=== PATIENT | male | born 1985 | race Caucasian/White ===

== ENCOUNTER 2020-04-26 12:26 | Emergency (ER) | payer SELFPAY ==
[~2020-04-26] VITALS: Ht 172.7 cm; Wt 59.0 kg
[2020-04-26] MEDS ORDERED: IBUPROFEN IB200 MG PO (12:58)
[2020-04-26] MEDS ORDERED: ACETAMINOPHEN500 MG PO (12:58)
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
--- NOTE | 2020-04-26 13:12 | Diagnostic Imaging Report ---
CT BRAIN [facility] HISTORY: Trauma COMPARISON: None. TECHNIQUE: Noncontrast axial scans were obtained from skull base to the vertex. Coronal and sagittal reconstructions obtained from the axial data. One or more of the following dose reduction techniques were used: Automated exposure control, adjustment of the mA and/or kV according to patient size, and/or utilization of iterative reconstruction technique. DISCUSSION: Scalp/Skull: No calvarial fracture. Brain sulci: Appropriate for patient's age. Ventricles: Normal in size and configuration. No hydrocephalus. Extra-axial spaces: No masses or fluid collections. Parenchyma: No abnormal densities. No mass, hemorrhage, or large vascular territory acute infarct. Dural sinuses: No abnormal densities. Sellar/Suprasellar region: Intact. Skull base: Intact. Incidental findings: Bilateral nasal bone fractures are age indeterminate. IMPRESSION: No intracranial abnormalities. Signed by: Dr. Rodriguez Cheney M.D. on 04/26/2020 1:09 PM
--- NOTE | 2020-04-26 13:22 | NUR ---
PT LYING ON STRETCHER WITH PHONE PLUGGED INTO OUTLETS AT DISCHARGE TIME. RN EXPLAINED D/C ORDERS AND PT JUST ROCKING HIS HEAD. PT IS AAOX4. PT WITH BIZZARE FLAT AFFECT AND HAD TO BE ASKED MULTIPLE TIMES IF HE UNDERSTOOD. PT STATES HE DID. PT AMBUALTORY WITH STEADY GAIT AT DISCHARGE.
--- OUTSIDE RECORDS SUMMARY | 2020-04-26 15:29 | XMS REPORT | Continuity of Care Document ---
Author Author [facility] t Organization [facility] Address [address] [place] [address] Phone Unavailable Care Team Providers Care Science Manager Name Role Phone Manuel PRIETO Attphys Unavailable Problems This patient has no known problems. Allergies, Adverse Reactions, Alerts This patient has no known allergies or adverse reactions. Medications This patient has no known medications. Procedures This patient has no known procedures. Results Test Description Test Time Test Comments Results Result Comments Source CT BRAIN [facility] 2020-04-26 13:06:00 [place] [id number] Patient Name: GOLD VEGA MR #: [id number] : 1985 Age/Sex: 34/M Req #: [id number] Adm Physician: Ordered by: LUIS PRIETO MD Report #: [id number] Location: [facility] Room/Bed: Procedure: [id number] HOPD/CT [facility]RAIN [facility] Exam Date: 04/26/20 Exam Time: 1258 REPORT STATUS: Signed CT [facility]RAIN [facility] HISTORY: Trauma COMPARISON: None. TECHNIQUE: Noncontrast axial scans were obtained from skull base to the vertex. Coronal and sagittal reconstructions obtained from the axial data. One or more of the following dose reduction techniques were used: Automated exposure control, adjustment of the mA and/or kV according to patient size, and/or utilization of iterative reconstruction technique. DISCUSSION: Scalp/Skull: No calvarial fracture. Brain sulci: Appropriate for patient's age. Ventricles: Normal in size and configuration. No hydrocephalus. Extra-axial spaces: No masses or fluid collections. Parenchyma: No abnormal densities. No mass, hemorrhage, or large vascular territory acute infarct. Dural sinuses: No abnormal densities. Sellar/Suprasellar region: Intact. Skull base: Intact. Incidental findings: Bilateral nasal bone fractures are age indeterminate. IMPRESSION: No intracranial abnormalities. Signed by: Dr. Rodriguez Cheney M.D. on 04/26/2020 1:09 PM Dictated By: RODRIGUEZ CHENEY MD [id number] Transcribed By: NEERAJ on 04/26/20 1309 COPY TO: LUIS PRIETO MD
--- NOTE | 2020-04-27 20:10 | NUR ---
pts discharge info and RX found in dirty gown bin,
== END 2020-04-26 13:24 | disposition home or self-care (01) ==
LOC: FSED 12:45
DX: S00.83XA Contusion of other part of head, initial encounter (principal); W18.2XXA Fall in (into) shower or empty bathtub, initial encounter; Y93.E1 Activity, personal bathing and showering; Y92.002 Bathroom of unspecified non-institutional (private) residence as the place of occurrence of the external cause; G62.9 Polyneuropathy, unspecified; F41.9 Anxiety disorder, unspecified
CPT/HCPCS: 70450; 99283

== ENCOUNTER 2024-05-19 10:43 | Emergency (ER) | payer SELFPAY ==
[~2024-05-19] VITALS: Ht 172.7 cm; Wt 59.0 kg
[~2024-05-19 10:43] MED LIST: ACETAMINOPHEN500 MG PO; IBUPROFEN IB200 MG PO
[2024-05-19 10:50] VITALS: PULSE 76; RESP 16; TEMP 97.7; O2SAT 100
== END 2024-05-19 11:41 | disposition left against medical advice (07) ==
LOC: ER 10:49
DX: M79.605 Pain in left leg (principal)